=== PATIENT | female | born 1980 | race Caucasian/White ===

== ENCOUNTER 2021-02-04 17:06 | Emergency (ER) | payer OTHER ==
[~2021-02-04] VITALS: Ht 167.6 cm; Wt 93.4 kg
[2021-02-04] MEDS ORDERED: NAPROSYN500 MG PO (19:04)
== END 2021-02-04 19:10 | disposition home or self-care (01) ==
LOC: ED 17:06
DX: S80.01XA Contusion of right knee, initial encounter (principal); J45.909 Unspecified asthma, uncomplicated; F41.9 Anxiety disorder, unspecified; W19.XXXA Unspecified fall, initial encounter; Y93.89 Activity, other specified; Y92.89 Other specified places as the place of occurrence of the external cause; Y99.8 Other external cause status

== ENCOUNTER 2022-06-20 15:27 | Inpatient (IN) | payer BC, OTHER ==
[~2022-06-20] VITALS: Ht 167.6 cm; Wt 90.7 kg
[~2022-06-20 15:27] MED LIST: NAPROSYN500 MG PO
[2022-06-20 15:35] VITALS: BP 135/76
[2022-06-20 17:02] LABS: BASO # 0.1 10*3/uL (0.0-0.1); BASO % 0.7 % (0.0-1.0); EOS # 0.7 10*3/uL (0.0-0.4); EOS % 7.7 % (1.0-4.0); HEMATOCRIT 43.1 % (37.0-47.0); LYMPH # 2.3 10*3/uL (1.3-4.4); LYMPH % 26.4 % (27.0-41.0); MEAN CELL VOLUME 87.1 fl (81.0-99.0); MEAN CORPUSCULAR HGB 28.7 pg (27.0-31.0); MEAN CORPUSCULAR HGB CONC 32.9 g/dl (33.0-37.0); MEAN PLATELET VOLUME 11.5 fl (9.6-12.3); MONO # 0.6 10*3/uL (0.1-1.0); MONO % 6.9 % (3.0-9.0); PLATELET COUNT AUTOMATED 205 10*3/uL (130-400); RED BLOOD COUNT 4.95 10*6/uL (4.10-5.10); RED CELL DISTRI WIDTH 12.6 % (0-14.5); WHITE BLOOD COUNT 8.7 10*3/uL (4.8-10.8)
[2022-06-20 17:04] LABS: BILIRUBIN Negative (Negative); BLOOD Negative (Negative); CLARITY Clear (Clear); COLOR Yellow (Yellow); GLUCOSE Negative (Negative); KETONE Negative (Negative); LEUKO ESTERASE Negative (Negative); NITRITE Negative (Negative); PH 6.5 (4.5-8.0); SPECIFIC GRAVITY 1.015 (1.001-1.030); UROBILINOGEN 0.2 E.U./dl (0.0-1.0)
[2022-06-20 17:18] LABS: ALKALINE PHOSPHATASE 106 U/L (45-117); BUN 8 mg/dl (7-24); CHLORIDE 106 mmol/L (98-107); CREATININE 0.65 mg/dL (0.55-1.02); LIPASE 209 U/L (73-393); SGOT/AST 14 IU/L (3-35); SGPT/ALT 20 U/L (12-78); SODIUM 139 mmol/L (136-145); TOTAL PROTEIN 7.2 gm/dL (6.4-8.2)
[2022-06-20 17:34] LABS: BACTERIA 1+; EPITHELIAL CELLS 51-100; WBC 0-2 wbc/hpf (0-5)
== END 2022-06-20 20:42 | disposition left against medical advice (07) | DRG 446 ==
LOC: ED 15:27 → EDHOLD 18:42 → 4E 19:26
PROVIDERS: Physician Assistant; ADMIT Student in an Organized Health Care Education/Training Program; ATTEND Student in an Organized Health Care Education/Training Program
DX: K80.20 Calculus of gallbladder without cholecystitis without obstruction (principal); K21.9 Gastro-esophageal reflux disease without esophagitis; E66.9 Obesity, unspecified; R82.71 Bacteriuria; F17.219 Nicotine dependence, cigarettes, with unspecified nicotine-induced disorders; Z88.8 Allergy status to other drugs, medicaments and biological substances; Z09 Encounter for follow-up examination after completed treatment for conditions other than malignant neoplasm; Z91.041 Radiographic dye allergy status; Z83.6 Family history of other diseases of the respiratory system; Z82.49 Family history of ischemic heart disease and other diseases of the circulatory system; Z71.6 Tobacco abuse counseling; Z68.32 Body mass index [BMI] 32.0-32.9, adult; Z53.29 Procedure and treatment not carried out because of patient's decision for other reasons

== ENCOUNTER 2024-07-22 18:25 | Emergency (ER) | payer OTHER ==
[~2024-07-22] VITALS: Ht 167.6 cm; Wt 68.5 kg
[2024-07-22] MEDS ORDERED: VIBRAMYCIN100 MG PO (19:21)
[2024-07-22] MEDS ORDERED: Doxycycline Hyclate 100 MG CAP PO ONE (19:25)
== END 2024-07-22 19:36 | disposition home or self-care (01) ==
LOC: ED 18:25
DX: L02.416 Cutaneous abscess of left lower limb (principal); K21.9 Gastro-esophageal reflux disease without esophagitis; F41.9 Anxiety disorder, unspecified; F17.210 Nicotine dependence, cigarettes, uncomplicated; Z88.8 Allergy status to other drugs, medicaments and biological substances; Z91.041 Radiographic dye allergy status; Z98.890 Other specified postprocedural states

== ENCOUNTER 2024-08-28 19:07 | Emergency (ER) | payer OTHER ==
[~2024-08-28] VITALS: Ht 167.6 cm; Wt 72.6 kg
[~2024-08-28 19:07] MED LIST changes: +VIBRAMYCIN100 MG PO
[2024-08-28] MEDS ORDERED: TRINTELLIX10 MG PO (19:34)
[2024-08-28] MEDS ORDERED: BUSPAR15 MG PO (19:34)
[2024-08-28] MEDS ORDERED: ROPINIROLE HYD0.5 MG PO (19:35)
[2024-08-28] MEDS ORDERED: methylPREDNISolone sod succ 125 MG VIAL IM ONE (20:20)
[2024-08-28] MEDS ORDERED: Doxycycline Hyclate 100 MG CAP PO ONE (20:20)
[2024-08-28] MEDS ORDERED: VIBRAMYCIN100 MG PO (20:21)
[2024-08-28] MEDS ORDERED: PREDNISONE20 M1 PO (20:21)
== END 2024-08-28 20:38 | disposition home or self-care (01) ==
LOC: ED 19:07
DX: L23.7 Allergic contact dermatitis due to plants, except food (principal); L03.818 Cellulitis of other sites; F41.9 Anxiety disorder, unspecified; F17.200 Nicotine dependence, unspecified, uncomplicated; Z88.8 Allergy status to other drugs, medicaments and biological substances; Z88.1 Allergy status to other antibiotic agents; Z91.041 Radiographic dye allergy status; Z98.890 Other specified postprocedural states

== ENCOUNTER 2024-09-30 17:59 | Emergency (ER) | payer OTHER ==
[~2024-09-30] VITALS: Ht 167.6 cm; Wt 68.0 kg
[~2024-09-30 17:59] MED LIST changes: +BUSPAR15 MG PO; +PREDNISONE20 M1 PO; +ROPINIROLE HYD0.5 MG PO; +TRINTELLIX10 MG PO
[2024-09-30] MEDS ORDERED: CELEBREX50 MG PO (18:15)
[2024-09-30] MEDS ORDERED: XANAX0.25 MG PO (18:15)
[2024-09-30] MEDS ORDERED: REMERON15 M2 PO (18:15)
[2024-09-30] MEDS ORDERED: Doxycycline Hyclate 100 MG CAP PO ONE (18:35)
[2024-09-30] MEDS ORDERED: Acetaminophen/Hydrocodone 5 MG/325 MG TABLET PO ONE (18:35)
== END 2024-09-30 18:51 | disposition home or self-care (01) ==
LOC: ED 17:59
DX: L73.2 Hidradenitis suppurativa (principal); F41.9 Anxiety disorder, unspecified; K21.9 Gastro-esophageal reflux disease without esophagitis; F17.200 Nicotine dependence, unspecified, uncomplicated; Z88.1 Allergy status to other antibiotic agents; Z88.8 Allergy status to other drugs, medicaments and biological substances; Z91.041 Radiographic dye allergy status; Z98.890 Other specified postprocedural states

== ENCOUNTER 2025-06-27 17:28 | Emergency (ER) | payer OTHER ==
[~2025-06-27 17:28] MED LIST changes: +CELEBREX50 MG PO; +REMERON15 M2 PO; +XANAX0.25 MG PO
[2025-06-27] MEDS ORDERED: Albuterol Sulf/Ipratropium 3 ML VIAL NEB ONE (17:55)
[2025-06-27] MEDS ORDERED: Dexamethasone Sodium Phospha 20 MG/5 ML VIAL IV ONE (17:55)
[2025-06-27 18:45] LABS: BASO # 0.1 10*3/uL (0.0-0.1); BASO % 0.8 % (0.0-1.0); EOS # 0.3 10*3/uL (0.0-0.4); EOS % 3.6 % (1.0-4.0); MEAN CELL VOLUME 89.9 fl (81.0-99.0); MEAN CORPUSCULAR HGB 28.9 pg (27.0-31.0); MEAN PLATELET VOLUME 12.8 fl (9.6-12.3); MONO # 0.6 10*3/uL (0.1-1.0); MONO % 8.5 % (3.0-9.0); NEUT # 4.1 10*3/uL (2.3-7.9); NEUT % 57.4 % (47.0-73.0); NUCLEATED RED BLOOD CELL 0.0 % (0.0-0.0); NUCLEATED RED BLOOD CELL 0.0 10*3/uL (0.0-0.0); PLATELET COUNT AUTOMATED 152 10*3/uL (130-400); RED CELL DISTRI WIDTH 12.6 % (0-14.5)
[2025-06-27 19:08] LABS: BUN 6 mg/dl (9-23)
[2025-06-27] MEDS ORDERED: diazePAM 5 MG TAB PO ONE ×2 (19:20)
[2025-06-27] MEDS ORDERED: ALBUTEROL 8 GM INHALER INH ONE (19:20)
== END 2025-06-27 19:38 | disposition home or self-care (01) ==
LOC: ED 17:28
PROVIDERS: Emergency Medicine
DX: F41.9 Anxiety disorder, unspecified (principal); Z20.822 Contact with and (suspected) exposure to COVID-19; J98.01 Acute bronchospasm; R19.7 Diarrhea, unspecified; K21.9 Gastro-esophageal reflux disease without esophagitis; G62.9 Polyneuropathy, unspecified; F17.200 Nicotine dependence, unspecified, uncomplicated; Z90.49 Acquired absence of other specified parts of digestive tract; Z88.1 Allergy status to other antibiotic agents; Z91.041 Radiographic dye allergy status; Z79.899 Other long term (current) drug therapy